=== PATIENT | male | born 1960 | race Caucasian/White ===

== ENCOUNTER 2022-09-06 06:07 | Day surgery (SDC) | payer OTHER, BC ==
[2022-08-29 12:11] VITALS: BMI 31.8
[2022-09-06] MEDS ORDERED: KETOROLAC TROMETHAMINE 30 MG/1 ML VIAL ONE (07:00)
[2022-09-06] MEDS ORDERED: MIDAZOLAM HCL 2 MG/2 ML SINGLE DOSE VIAL ONE (07:00)
[2022-09-06] MEDS ORDERED: PROPOFOL 60 ML ONE (07:00)
[2022-09-06] MEDS ORDERED: DEXAMETHASONE SOD PHOSPHATE 4 MG/1 ML VIAL ONE (07:00)
[2022-09-06] MEDS ORDERED: ceFAZolin SODIUM 1 GM VIAL ONE (07:00)
[2022-09-06] MEDS ORDERED: ONDANSETRON 4 MG/2 ML VIAL ONE (07:00)
[2022-09-06] MEDS ORDERED: KETAMINE HCL 200 MG/20 ML VIAL ONE (07:00)
[2022-09-06] MEDS ORDERED: DEXAMETHASONE SOD PHOSPHATE/PF 10 MG/ML SDV ONE (07:05)
[2022-09-06] MEDS ORDERED: ROPIVACAINE HCL 0.5% 30ML VIAL ONE (07:05)
[2022-09-06] MEDS ORDERED: ACETAMINOPHEN INJECTION 100 ML IVPB ONE (07:05)
[2022-09-06] MEDS ORDERED: BUPIVACAINE HCL/EPINEPHRINE/PF 30 ML VIAL IJ ONE (07:15)
[2022-09-06] MEDS ORDERED: ONDANSETRON 4 MG/2 ML VIAL IVPUSH PRN (07:50)
[2022-09-06] MEDS ORDERED: oxyCODONE HCL 5 MG TABLET PO PRN (07:50)
[2022-09-06] MEDS ORDERED: ACETAMINOPHEN 325 MG TABLET (FP) PO PRN (07:50)
[2022-09-06] MEDS ORDERED: LACTATED RINGERS SOLUTION 1,000 ML IV SCH (08:00)
[2022-09-06] MEDS ORDERED: BUPIVACAINE 0.25% /EPI 1:200,000 10 ML VIAL NR ONE (08:16)
[2022-09-06 16:30] VITALS: RESP 17
[2022-09-06 16:32] VITALS: PULSE 91
[2022-09-06 16:46] VITALS: BP 115/73; TEMP 95
== END 2022-09-06 11:00 | disposition home or self-care (01) ==
LOC: FASU 06:07
PROVIDERS: ATTEND Orthopaedic Surgery
PROC: 0RNJ4ZZ Release Right Shoulder Joint, Percutaneous Endoscopic Approach (ICD-10-PCS; principal; 2022-09-06 08:16)
PROC: 0LS34ZZ Reposition Right Upper Arm Tendon, Percutaneous Endoscopic Approach (ICD-10-PCS; 2022-09-06 08:16)
DX: M75.101 Unspecified rotator cuff tear or rupture of right shoulder, not specified as traumatic (principal); M66.811 Spontaneous rupture of other tendons, right shoulder
CPT/HCPCS: 82962; 94760; C1713